=== PATIENT | male | born 1940 | race African-American/Black ===

== ENCOUNTER 2017-03-02 11:08 | Emergency (ER) | payer BC, MEDICARE, OTHER ==
[~2017-03-02] VITALS: Ht 177.8 cm; Wt 84.4 kg
[~2017-03-02 11:08] MED LIST: ASPI81CH43 PO; ATOR40TA52 PO; LISI10TA6 PO; METF-370 PO
[2017-03-02 11:27] VITALS: BP 136/72
[2017-03-02 12:51] LABS: Basophils # (auto) 0 uL; Basophils % (auto) 0.4 % (0.0-2.0); CONDITION Y; DEFINITIVE SEE PRINTOUT; Eosinophils # (auto) 0.2 uL; Eosinophils % (auto) 3.4 % (0.0-7.0); Hematocrit 42.5 % (41.0-53.0); Hemoglobin 13.7 g/dL (13.5-17.5); Lymphocytes # (auto) 1.4 uL; Mean Corpuscular Hemoglobin 26.7 pg (28.0-32.0); Mean Corpuscular Hgb Conc. 32.3 g/dL (32.0-36.0); Mean Corpuscular Volume 82.8 fL (80.0-100.0); Mean Platelet Volume 8.3 fL (7.4-10.4); Monocytes # (auto) 0.4 uL; Monocytes % (auto) 7.1 % (0.0-12.0); Neutrophils # (auto) 4.1 uL; Neutrophils % (auto) 66.1 % (37.0-80.0); Platelet Count (auto) 218 10^3/uL (140-450); Red Cell Distribution Width 16.9 % (11.6-16.0); White Blood Cell 6.2 10^3/uL (4.4-10.8)
[2017-03-02 13:16] LABS: Albumin 3.6 g/dL (3.4-5.0); Anion Gap 10 (5-15); Aspartate Aminotransferase 24 U/L (15-37); BUN/Creatinine Ratio 14.5; Blood Urea Nitrogen 18 mg/dL (7-18); Calcium 8.5 mg/dL (8.5-10.1); Carbon Dioxide 19 mmol/L (21-32); Chloride 107 mmol/L (98-107); GFR African American 73 mL/min; GFR Non-African American 60 mL/min; Glucose 213 mg/dL (74-106); Potassium 4.8 mmol/L (3.5-5.1); Sodium 136 mmol/L (136-145)
[2017-03-02 13:21] LABS: Alkaline Phosphatase 36 U/L (45-117); Bilirubin, Total 0.5 mg/dL (0.2-1.0); Total Protein 7.9 g/dL (6.4-8.2)
== END 2017-03-02 14:37 | disposition left against medical advice (07) ==
LOC: ER 11:08
DX: R73.9 Hyperglycemia, unspecified (principal); Z53.21 Procedure and treatment not carried out due to patient leaving prior to being seen by health care provider
CPT/HCPCS: 36415; 80053; 82962; 84484; 85025

== ENCOUNTER 2019-01-07 12:22 | Emergency (ER) | payer BC, MEDICARE, OTHER ==
[~2019-01-07] VITALS: Ht 177.8 cm; Wt 80.3 kg
[2019-01-07 13:41] VITALS: BP 111/65
[2019-01-07] MEDS ORDERED: HYDROcodone-ACET 5/325MG TAB PO ONE (14:15)
== END 2019-01-07 14:59 | disposition home or self-care (01) ==
LOC: ER 12:22
DX: S92.001A Unspecified fracture of right calcaneus, initial encounter for closed fracture (principal); S20.311A Abrasion of right front wall of thorax, initial encounter; I10 Essential (primary) hypertension; E11.9 Type 2 diabetes mellitus without complications; E78.00 Pure hypercholesterolemia, unspecified; Z79.82 Long term (current) use of aspirin; Z79.899 Other long term (current) drug therapy; W18.39XA Other fall on same level, initial encounter; Y93.89 Activity, other specified; Y92.89 Other specified places as the place of occurrence of the external cause; Y99.8 Other external cause status
CPT/HCPCS: 29515; 71101; 73610; 73630